=== PATIENT | male | born 1960 | race Two or more races ===

== ENCOUNTER 2021-08-08 09:00 | Inpatient (IN) | payer OTHER ==
[~2021-08-08] VITALS: Ht 182.9 cm; Wt 92.1 kg
[2021-08-08] VITALS (12 sets, daily range): BP systolic 102–158; BP diastolic 48–87
--- NOTE | 2021-08-08 09:03 | NUR ---
To ER bed 12, betty, from home, had seizure episode, witnessed by , versed 5mg, connected to monitor
--- NOTE | 2021-08-08 09:15 | NUR ---
SALINE LOCK ESTABLISHED, BLOOD DRAWN AND SENT TO LAB
--- NOTE | 2021-08-08 09:24 | NUR ---
URINE COLLECTED AND SENT TO LAB
[2021-08-08 09:28] LABS: BASOPHILS % (AUTO) 0.5 % (0.0-2.0); EOSINOPHILS % (AUTO) 2.1 % (0.0-6.0); HEMATOCRIT 30 % (39-51); HEMOGLOBIN 9.8 g/dL (13.5-17.5); LYMPHOCYTES # (AUTO) 0.8 K/uL (0.8-4.8); LYMPHOCYTES % (AUTO) 15.3 % (20.0-44.0); MEAN CORPUSCULAR HGB CONC 33 g/dl (31.0-36.0); MEAN CORPUSCULAR VOLUME 97 fL (80-96); MONOCYTES # (AUTO) 0.3 K/uL (0.1-1.30); NEUTROPHILS # (AUTO) 4.1 K/uL (1.8-8.9); NEUTROPHILS % (AUTO) 77.1 % (43.0-81.0); PLATELET COUNT (AUTO) 239 K/uL (150-450); RED BLOOD CELL COUNT(AUTO) 3.07 MIL/uL (4.5-6.0); WHITE BLOOD COUNT (AUTO) 5.4 K/uL (4.3-11.0)
[2021-08-08] MEDS ORDERED: IV NS 0.9% 1,000 ML BAG IV ONE (09:30)
[2021-08-08] MEDS ORDERED: LORAZEPAM INJ 2 MG/ML VIAL ONE (09:41)
--- NOTE | 2021-08-08 09:41 | NUR ---
TAKEN TO CT
[2021-08-08 09:46] LABS: BILIRUBIN,URINE NEGATIVE (NEGATIVE); COLOR,URINE YELLOW (YELLOW); LEUKOCYTE ESTERASE ,URINE NEGATIVE (NEGATIVE); NITRITE, URINE NEGATIVE (NEGATIVE); PROTEIN,URINE NEGATIVE (NEGATIVE); UGLUCOSE NEGATIVE (NEGATIVE); UROBILINOGEN,URINE 0.2 EU/dL (0.2)
[2021-08-08 09:49] LABS: CALCIUM, SERUM 9.1 mg/dL (8.5-10.1); CARBON DIOXIDE 23 mmol/L (21-32); CHLORIDE 101 mmol/L (98-107); CREATININE 1.5 mg/dL (0.6-1.3); GLUCOSE 114 mg/dL (74-106); POTASSIUM 4.6 mmol/L (3.5-5.1); SODIUM SERUM 137 mmol/L (136-145); UREA NITROGEN, BLOOD 24 mg/dL (7-18)
--- NOTE | 2021-08-08 09:55 | NUR ---
ATTEMPTED TO OBTAIN EKG ON PATIENT, PATIENT NOT STAYING STILL. KEEPS REMOVING CABLES.
[2021-08-08] MEDS ORDERED: LORAZEPAM INJ 2 MG/ML VIAL IVP ONE (10:00)
--- NOTE | 2021-08-08 13:31 | NUR ---
OBTAINED EKG AT 1119
--- NOTE | 2021-08-08 13:39 | NUR ---
BED 322-2. NURSE IS MARGARET
[2021-08-08] MEDS ORDERED: ONDANSETRON HCL/PF 4 MG/2 ML VIAL IVP PRN (14:00)
[2021-08-08] MEDS ORDERED: MAG HYDROX/AL HYDROX/SIMETH 30 ML UDC PO PRN (14:00)
[2021-08-08] MEDS ORDERED: MAGNESIUM HYDROXIDE 30 ML UDC PO PRN (14:00)
[2021-08-08] MEDS ORDERED: Z GUARD REMEDY 2 OZ OINT TP PRN (14:00)
[2021-08-08] MEDS ORDERED: ACETAMINOPHEN 325 MG TABLET PO PRN (14:00)
--- NOTE | 2021-08-08 14:01 | NUR ---
report given to Donna Andrew for bharath
--- NOTE | 2021-08-08 14:20 | NUR ---
[facility] ADMITTING NOTES RECEIVED PATIENT FORM E.R VIA [employer]. PATIENT IS A&O X 1, NOTED WITH CONFUSION. IV ACCESS ON RAC G#20 PATENT AND FLUSHES WELL. STARTED AN IV OF NS 1LX 75CC/HR, INFUSING WELL NO S/SX OF INFILTRATION NOTED. VITAL SIGNS TAKEN AND RECORDED. ON TELE MONITOR SHOWING NSR HR T 70'S. HISTORY TAKEN FROM PATIENT'S VIA PHONE CALL. SAFETY MEASURES IN PLACE: BED ON LOWEST LOCKED POSITION, SIDE RAILS UP X 2, PADDED SIDE RAILS WITH SIFT CLOTH FOR SAFETY, CALL LIGHT WITHIN EASY REACH. WILL CONTINUE TO MONITOR ACCORDINGLY.
[2021-08-08] MEDS: IV NS 0.9% 1,000 ML IV PRN (15:07)
[2021-08-08 15:27] LABS: ALANINE AMINOTRANSFERASE 22 U/L (12-78); ALBUMIN 3.7 g/dL (3.4-5.0); ALCOHOL, BLOOD < 3 mg/dL (0-0); ALKALINE PHOSPHATASE 69 U/L (46-116); ASPARTATE AMINOTRANSFERASE 27 U/L (15-37); BILIRUBIN,DIRECT 0.1 mg/dL (0.0-0.2); BILIRUBIN,TOTAL 0.4 mg/dL (0.2-1.0); TOTAL PROTEIN, SERUM 7.4 g/dL (6.4-8.2)
[2021-08-08 15:30] LABS: ACETAMINOPHEN < 10 ug/ml (10-30)
--- NOTE | 2021-08-08 15:30 | NUR ---
RN NOTES PATIENT WAS SEEN AND EXAMINED ON ROUNDS BY DR. MCKINLEY WITH ORDERS MADE AND CARRIED OUT. PATIENT TRANSFERRED TO ICU SAFELY. REPORT GIVEN TO JUDIE MURDOCK.
--- NOTE | 2021-08-08 16:55 | NUR ---
RN NOTES PATIENT NOTED TO HAVE CHANGE IN MENTATION AT 1645. NOT RESPONDING TO NAME COMPARED TO UPON ADMISSION. REACTS TO STERNAL RUB JUST BY INDEX FINGER TWITCHING. VITAL SIGNS TAKEN FOLLOWS: BP 156/94, IN 80, RR 12-14 O2 SAT 96%. NOTIFIED CHARGE NURSE. CHARGE NURSE REFERRED PATIENT AND SPOKE TO DR. PATEL. ABG STAT ORDERED AND DONE. PER DR. PATEL HE WILL SEE AND ASSESS PATIENT AND WILL BE HERE IN 10-15 MINS.
[2021-08-08 17:34] LABS: ABG BASE EXCESS 2.8 mmol/L; ABG OXYGEN SATURATION 94.7 % (92.0-98.5); ABG PCO2 65.7 mmHg (35.0-45.0); ABG PH 7.288 (7.350-7.450); ABG PO2 84.2 mmHg (75.0-100.0); AaDO2 37.9 mmHg; COHb 0.4 % (0.5-1.5); MetHb 0.2 % (0.0-1.5); O2Hb 94.1 % (94.0-97.0); SITE, ABG Left Radial
[2021-08-08] MEDS: LEVETIRACETAM (500MG) 1,000 MG in IV NS 0.9% 100 ML IV SCH (19:07)
[2021-08-08] MEDS: LORAZEPAM INJ 2 MG/ML VIAL IV PRN (23:40)
--- NOTE | 2021-08-08 23:45 | NUR ---
RN NOTE ATIVAN ADMIN FOR PT GETTING UP IN BED, ATTEMPTING TO PULL OFF EQUIPMENT, BIPAP MASK
[2021-08-09] VITALS (32 sets, daily range): BP systolic 107–190; BP diastolic 39–107
[2021-08-09] MEDS ORDERED: LORAZEPAM INJ 2 MG/ML VIAL IV ONE ×2 (03:00→20:00)
--- NOTE | 2021-08-09 03:36 | NUR ---
RN NOTE PT HAVING BIZARRE BEHAVIOR, YELLING IF HE WAS HAVING AN ARUGMENT, BUT BY HIMSELF. PT DOES NOT RESPOND TO VERBAL OR TACTILE STIMULATION. PT IS AGITATED. NOT DUE FOR ANOTHER ATIVAN AT THIS TIME. NOTIFIED DR CHRISTIANSON REGARDING PT SITUATION, ORDERS FOR ATIVAN 2MG/1ML X 1 IVP ONCE AND HALDOL 5MG IM TO CALM PT DOWN CARRIED OUT.
[2021-08-09] MEDS ORDERED: HALOPERIDOL LACTATE INJ 5 MG/ML VIAL IM ONE (04:00)
[2021-08-09] MEDS: IV NS 0.9% 1,000 ML IV PRN ×2 (04:08→22:22)
[2021-08-09 04:36] LABS: BASOPHILS % (AUTO) 0.1 % (0.0-2.0); HEMATOCRIT 29 % (39-51); HEMOGLOBIN 9.7 g/dL (13.5-17.5); LYMPHOCYTES # (AUTO) 0.9 K/uL (0.8-4.8); LYMPHOCYTES % (AUTO) 12.7 % (20.0-44.0); MEAN CORPUSCULAR HGB CONC 34 g/dl (31.0-36.0); MEAN CORPUSCULAR VOLUME 96 fL (80-96); MONOCYTES # (AUTO) 0.4 K/uL (0.1-1.30); MONOCYTES % (AUTO) 5.1 % (2.0-12.0); NEUTROPHILS # (AUTO) 5.7 K/uL (1.8-8.9); NEUTROPHILS % (AUTO) 82.1 % (43.0-81.0); PLATELET COUNT (AUTO) 236 K/uL (150-450); RED BLOOD CELL COUNT(AUTO) 3.02 MIL/uL (4.5-6.0); WHITE BLOOD COUNT (AUTO) 6.9 K/uL (4.3-11.0)
--- NOTE | 2021-08-09 04:45 | NUR ---
RN NOTE TEMP NOTED TO BE 100.9 AXILLARY, COOLING MEASURES APPLIED
[2021-08-09 04:52] LABS: ALBUMIN 3.5 g/dL (3.4-5.0); BILIRUBIN,TOTAL 0.6 mg/dL (0.2-1.0); CALCIUM, SERUM 9.1 mg/dL (8.5-10.1); CREATININE 1.4 mg/dL (0.6-1.3); MAGNESIUM 1.5 mg/dL (1.8-2.4); POTASSIUM 3.8 mmol/L (3.5-5.1); TOTAL PROTEIN, SERUM 7.1 g/dL (6.4-8.2)
[2021-08-09 05:03] LABS: THYROID STIMULATING HORMONE 0.448 uIU/mL (0.358-3.74)
[2021-08-09 05:11] LABS: PHOSPHORUS 0.9 mg/dL (2.5-4.9)
--- NOTE | 2021-08-09 05:40 | NUR ---
RN NOTE TEMP WENT DOWN TO 100.5 AXILLARY CRITICAL RESULT FOR PT PHOSPHORUS LEVEL OF 0.9 CALLED EPIC EX CHANGE FOR ORDERS FROM MD CHRISTIANSON Addendum: 08/09/21 at 0646 by YOANA CASTANON RN ORDERS FROM MD CHRISTIANSON TO CHANGE DIET TO NPO, TYLENOL RECTAL SUPPOSITORY 650 MG Q6H CARRIED OUT NO ORDERS AT THIS TIME FOR PHOS OF 0.9 WILL ENDORSE CARE TO DAY SHIFT RN FOR CONTINUATION OF CARE.
[2021-08-09] MEDS: LORAZEPAM INJ 2 MG/ML VIAL IV PRN ×3 (05:49→17:57)
[2021-08-09] MEDS ORDERED: ACETAMINOPHEN 650 MG/SUPP.RECT RC PRN (07:00)
[2021-08-09] MEDS ORDERED: Sodium Phosphate 40 MMOL in IV NS 0.9% 250 ML IV SCH (07:00)
[2021-08-09] MEDS ORDERED: MORPHINE SULFATE INJ 2 MG/ML DISP.SYRIN IV PRN (07:00)
--- NOTE | 2021-08-09 07:04 | NUR ---
RN CLOSING NOTE PT REMAINS ON IVF, GIVEN ATIVAN STILL AGITATED. PER MD CHRISTIANSON ORDERS CARRIED OUT FOR MORPHINE 2MG Q6H PRN. PT AT THIS TIME TEMP IS 99.8 AXILLARY. ON COOLING MEASURES. ORDERS FOR 0.9 PHOS RESULT, TO BE REPLACED WITH 40MMOL IV OF SODIUM PHOSPHATE. PT REMAINS ON BIPAP 18 AT 30%. ENDORSED TO DAY SHIFT RN FOR CONTINUATION OF CARE
--- NOTE | 2021-08-09 07:30 | NUR ---
RN NOTES PT FOUND CRAWLING ALL AROUND BED DISPLAYING NO S/S OF ACUTE DISTRESS, FLACC = 3 AND BILATERAL RISE AND FALL OF THE CHEST OBSERVED. PT IS SEVERLY CONFUSED, ATTEMPTING TO GET OUT OF BED. RESTRAINTS WERE RE APPLIED BILATERALLY AND TIGHTENED FOR PATIENT SAFETY. PULSES WERE PALPATED AND CAP REFILL CHECKED ( < 3 SECONDS) BILATERALLY. MCCOY CATH BELOW PATIENT AND DRAINING BY GRAVITY. R UA MID LINE PATIENT AND INTACT. VSS, RN WILL MONITOR AND TREAT THROUGHOUT SHIFT. SAFETY MEASURES IN PLACE, BED LOCKED AND IN LOWEST POSITION, SIDE RAILS UPX3, CALL LIGHT WITHIN REACH, BED ALARM ARMED.
[2021-08-09] MEDS ORDERED: Sodium Phosphate 30 MMOL in IV NS 0.9% 250 ML IV SCH (08:00)
--- NOTE | 2021-08-09 08:00 | NUR ---
MD VISIT DR. PATEL ASSESSED PATIENT. GAVE RN ORDERS: REMOVE MCCOY CATH, REMOVE R AC 20G, 50 MG DIPHENHYDRAMINE IV ONCE NOW. RN ACKNOWLEDGED ORDERS AND WILL EXECUTE DIRECTED.
[2021-08-09] MEDS ORDERED: diphenhydrAMINE HCL 50 MG/ML VIAL IV ONE (08:30)
[2021-08-09] MEDS ORDERED: METO50TA16 PO (08:44)
[2021-08-09] MEDS ORDERED: AMLO-212 PO (08:44)
[2021-08-09] MEDS ORDERED: TRIA1CAP20 PO (08:44)
[2021-08-09] MEDS ORDERED: BENA20TA9 PO (08:44)
[2021-08-09] MEDS ORDERED: DOXE25CA3 PO (08:57)
[2021-08-09] MEDS ORDERED: OMEP20CA15 PO (08:57)
[2021-08-09] MEDS ORDERED: GABA-532 PO (08:57)
[2021-08-09] MEDS ORDERED: BUPR1FIL19 SL (08:57)
[2021-08-09] MEDS ORDERED: FENO145T21 PO (08:57)
[2021-08-09] MEDS ORDERED: PARO40TA4 PO (08:57)
[2021-08-09] MEDS ORDERED: ALLO300T2 PO (08:57)
[2021-08-09 09:10] LABS: ABG BASE EXCESS 0.7 mmol/L; ABG PCO2 42.1 mmHg (35.0-45.0); ABG PH 7.401 (7.350-7.450); ABG PO2 65.2 mmHg (75.0-100.0); AaDO2 55.8 mmHg; COHb 0.3 % (0.5-1.5); MetHb 0.1 % (0.0-1.5); O2Hb 91.6 % (94.0-97.0); SITE, ABG Right Radial; VENT MODE, BG NC 24%
[2021-08-09] MEDS: Magnesium 1GM/D5W 100ML PREMIX 100 ML IV SCH ×2 (10:45→11:57)
[2021-08-09] MEDS: LEVETIRACETAM (500MG) 1,000 MG in IV NS 0.9% 100 ML IV SCH ×2 (11:09→21:56)
[2021-08-09] MEDS ORDERED: HALOPERIDOL LACTATE INJ 5 MG/ML VIAL IVP ONE (13:30)
--- NOTE | 2021-08-09 15:17 | NUR ---
SS Consult: Drug Abuse/Fentanyl SW attempted to meet with pt. SW spoke with pt.s nurse and he mentioned that pt. is severely confused and in his own world. SW will attempt to interview pt. once he is alert and in the appropriate state of mind.
--- NOTE | 2021-08-09 19:05 | NUR ---
RN NOTES PT FOUND SUPINE DISPLAYING NO S/S OF ACUTE DISTRESS, FLACC = 2 AND PT IS BREATHING EVEN AND UNLABORED ON 2L O2 NC. PT IS STILL SEVERLY CONFUSED, STILL ATTEMPTING TO GET OUT OF BED. RESTRAINTS WERE APPLIED BILATERALLY AND TIGHTENED FOR PATIENT SAFETY. PULSES WERE PALPATED AND CAP REFILL CHECKED ( < 3 SECONDS) BILATERALLY. R UA MID LINE PATIENT AND INTACT. SBAR AND REPORT GIVEN TO CAR PINCHER RN. ALL QUESTIONS ANSWERED. SAFETY MEASURES IN PLACE, BED LOCKED AND IN LOWEST POSITION, SIDE RAILS UPX3, CALL LIGHT WITHIN REACH, BED ALARM ARMED. PT ENDORSED IN STABLE CONDITION FOR JODI.
--- NOTE | 2021-08-09 19:30 | NUR ---
RN NOTE PT RECEIVED IN BED. PT IS ON 2L OF O2 VIA NC SHOWING NO S/S OF RESP DISTRESS. BREATHING EVEN AND UNLABORED. NO SIGNS OF DISTRESS. PT IS CONFUSED/RESTLESS. NSR ON MONITOR. RESTRAINTS NOTED. CURRENTLY NPO. IV ACCESS NOTED ON RIGHT UPPER ARM ML #18. LINE FLUSHED, PATENT, AND INTACT WITH NO SIGNS OF INFILTRATION. 0.9% NS RUNNING AT 75 ML/HR. ALL SAFETY MEASURES IMPLEMENTED. BED ALARM ON. BED LOCKED AND IN LOWEST POSITION. WILL CONTINUE TO MONITOR AND ASSESS FOR ANY CHANGES THROUGHOUT SHIFT.
--- NOTE | 2021-08-09 19:55 | NUR ---
RN NOTE DR. CARRASCO CAME TO ASSESS PATIENT AND ORDERED STAT CT SCAN. X-RAY CAME TO TAKE PATIENT FOR CT, BUT THEY SAID THE PATIENT IS MOVING AROUND TO MUCH AND THEY WOULD NOT BE ABLE TO DO THE CT DUE TO PATIENT BEING TOO AGITATED AND RESTLESS.
--- NOTE | 2021-08-09 20:15 | NUR ---
RN NOTE INFORMED DR. FINK ABOUT X-RAY SAYING THEY WOULD NOT BE ABLE TO DO CT DUE TO PT MOVING AROUND A LOT AND BEING RESTLESS. DR. FINK ORDERED ATIVAN 1MG IVP ONCE. ATIVAN ADMINISTERED ORDERED. PT TAKEN DOWN FOR CT, BUT PT WAS STILL RESTLESS AND MOVING AROUND. X-RAY WAS NOT ABLE TO DO CT. DR. CARRASCO NOTIFIED. NO NEW ORDERS AT THIS TIME.
[2021-08-10] VITALS (33 sets, daily range): BP systolic 141–214; BP diastolic 33–138
--- NOTE | 2021-08-10 01:00 | NUR ---
RN NOTE DR. CARRASCO CALLED AND ORDERED TO ADMINISTER ASPIRIN SUPPOSITORY 300MG. ORDER NOTED AND CARRIED OUT.
[2021-08-10] MEDS ORDERED: ASPIRIN 300 MG/SUPP.RECT RC ONE ×2 (01:30→01:52)
[2021-08-10] MEDS: LORAZEPAM INJ 2 MG/ML VIAL IV PRN ×2 (02:14→08:40)
--- NOTE | 2021-08-10 06:43 | NUR ---
RN NOTE NO CHANGES IN PT CONDITION DURING SHIFT. PT IS ON 2L OF O2 VIA NC SHOWING NO S/S OF RESP DISTRESS. BREATHING EVEN AND UNLABORED. NO SIGNS OF DISTRESS. PT IS STILL CONFUSED/RESTLESS. NSR ON MONITOR. IV ACCESS NOTED ON RIGHT UPPER ARM ML #18. LINE FLUSHED, PATENT, AND INTACT WITH NO SIGNS OF INFILTRATION. 0.9% NS RUNNING AT 75 ML/HR. ALL DUE MEDS GIVEN ORDERED. PT KEPT CLEAN AND COMFORTABLE. ALL SAFETY MEASURES IMPLEMENTED. BED ALARM ON. BED LOCKED AND IN LOWEST POSITION. WILL ENDORSE TO MORNING SHIFT RN FOR JODI.
--- NOTE | 2021-08-10 08:00 | NUR ---
RN NOTES PATIENT IN BED ANXIOUS, IRRITABLE, UNDRESS HIMSELF, CONFUSED, TRYING TO GET OUT OF BED BILATERAL RESTRAIN IS ON, CHECKED CIRCULATION Q2H, STARTED KEPPRA DRIP, NO SING OF AND SYMPTOMS OF SEIZURE, NO ACUTE RESPIRATORY DISTRESS. PT VERBALIZED INTERNAL STIMULI. SAFETY MEASURES IN PLACE SIDE RAILS PADDED FOR SAFETY, CALL LIGHT WITHIN REACH BED ALARM ON, WILL KEEP MONITORING CLOSELY
[2021-08-10 08:09] LABS: BASOPHILS % (AUTO) 0.3 % (0.0-2.0); HEMATOCRIT 28 % (39-51); HEMOGLOBIN 9.2 g/dL (13.5-17.5); LYMPHOCYTES # (AUTO) 0.8 K/uL (0.8-4.8); MEAN CORPUSCULAR HGB CONC 33 g/dl (31.0-36.0); MEAN CORPUSCULAR VOLUME 97 fL (80-96); MONOCYTES # (AUTO) 0.5 K/uL (0.1-1.30); MONOCYTES % (AUTO) 6.6 % (2.0-12.0); NEUTROPHILS # (AUTO) 6.3 K/uL (1.8-8.9); NEUTROPHILS % (AUTO) 83.1 % (43.0-81.0); PLATELET COUNT (AUTO) 191 K/uL (150-450); RED BLOOD CELL COUNT(AUTO) 2.89 MIL/uL (4.5-6.0); WHITE BLOOD COUNT (AUTO) 7.6 K/uL (4.3-11.0)
[2021-08-10 08:17] LABS: ALBUMIN 3.5 g/dL (3.4-5.0); BILIRUBIN,TOTAL 0.5 mg/dL (0.2-1.0); CALCIUM, SERUM 8.6 mg/dL (8.5-10.1); CREATININE 1.2 mg/dL (0.6-1.3); PHOSPHORUS 2.7 mg/dL (2.5-4.9); POTASSIUM 3.6 mmol/L (3.5-5.1); TOTAL PROTEIN, SERUM 6.8 g/dL (6.4-8.2)
[2021-08-10] MEDS: LEVETIRACETAM (500MG) 1,000 MG in IV NS 0.9% 100 ML IV SCH (08:40)
--- NOTE | 2021-08-10 08:40 | NUR ---
Rn Notes Pt yelling and creaming administering activan 2 ml iv push blood pressure 189/125 hr 93 will follow up
--- NOTE | 2021-08-10 11:08 | NUR ---
RN NOTES GOT CALLED FROM PT HER Name is MEGHANA , SHE WANTS TO SPEAK WITH THE HOSPITALIST ACCORDING PT WITHDRAWAL AND PAIN MANAGEMENT HOSPITALIST NOTIFIED
--- NOTE | 2021-08-10 11:10 | NUR ---
RN NOTES PT SEEN BY HOSPITALIST REGARDING WITHDRAWALS AND MOVING, CONFUSED AND PER HOSPITALIST UNABLE TO DO MRI BECAUSE PT MOVING, IRRITATING CONDITION. AM CARE DONE AND CHANGED COMFORT AND SAFETY MEASURES PROVIDED.
[2021-08-10] MEDS: IV NS 0.9% 1,000 ML IV PRN (12:22)
--- NOTE | 2021-08-10 12:26 | NUR ---
Rn notes Pt is yelling and screaming, called [facility] to get one time order Ativan 2mg/ml iv push order taken and carried out
[2021-08-10] MEDS ORDERED: LORAZEPAM INJ 2 MG/ML VIAL IV ONE (12:30)
[2021-08-10] MEDS: hydrALAZINE HCL IV 20 MG VIAL IV PRN ×2 (12:32→17:45)
--- NOTE | 2021-08-10 12:34 | NUR ---
RN NOTES ADMINISTERED APRESOLINE 10MG/ML IV PUSH FOR BP 176/91, P-100 .
--- NOTE | 2021-08-10 14:03 | NUR ---
RN NOTES ORDER RECEIVED FROM IN HOUSE CRA TO INSERT FOLLY CATH FOR ACCURATE OUTPUT
--- NOTE | 2021-08-10 14:23 | NUR ---
RN NOTES TEMPERATURE 101F ADMINISTERED TYLENOL SUPPOSITORY 650 MG PRN
[2021-08-10] MEDS ORDERED: MANNITOL 12.5 GM/50 ML VIAL IV ONE (17:00)
[2021-08-10] MEDS ORDERED: MANNITOL 20% IV ONE (17:00)
--- NOTE | 2021-08-10 17:25 | NUR ---
RN NOTES Pt condition changes suddenly, CT scan ordered and resulted, called [facility] , Pt orally intubated by Dr. Forrest with 7.5 ET tube secured at 23cm at the lip line with no complications. equal bilateral breath sounds and chest rise noted. Pt placed on mechanical ventilation with noted settings per MD order. No SOB or respiratory distress noted at this time. OGT inserted, x-ray done for placement. hob keep elevated for aspiration precaution. infusing Mannitol at this time.
--- NOTE | 2021-08-10 17:25 | NUR ---
RT Pt orally intubated by Dr. Forrest with 7.5 ET tube secured at 23cm at the lip line with no complications. Positive color changed on CO2 detector, equal bilateral breath sounds and chest rise noted. Pt placed on mechanical ventilation with noted settings per MD order. No SOB or respiratory distress noted at this time. Addendum: 08/10/21 at 1739 by JOE PFEIFFER RT Amended: Links added.
--- NOTE | 2021-08-10 17:45 | NUR ---
rn notes administered Apresoline 10mg/ml iv push for bp 185/105, p0-105.
[2021-08-10] MEDS ORDERED: PROPOFOL 100 ML IV PRN (18:00)
[2021-08-10 18:31] LABS: ABG BASE EXCESS -2.7 mmol/L; ABG OXYGEN SATURATION 97.9 % (92.0-98.5); ABG PCO2 30.1 mmHg (35.0-45.0); ABG PH 7.451 (7.350-7.450); ABG PO2 109.3 mmHg (75.0-100.0); AaDO2 141.3 mmHg; COHb 0.3 % (0.5-1.5); MetHb 0.1 % (0.0-1.5); O2Hb 97.5 % (94.0-97.0); PEEP,BG 5 cm H2O; SITE, ABG Right Radial; VT, ABG 500 mL
--- NOTE | 2021-08-10 18:48 | NUR ---
rn notes abg result notified dR sykes no change
--- NOTE | 2021-08-10 19:24 | NUR ---
RN NOTES PATIENT WILLING TO TRANSFER TO THE [facility] ICU ROOM 4529. PATIENT ETT-7.5/23, AC-20, PEEP-5, TV-500, FIO2-40. PATIENT TOLERATED SETTING WELL. OGT INTACT, CLAMPED. MCCOY INTACT OUTPUT WAS 300 ML. IV ACCESS ON RIGHT UA MIDLINE INTACT. BEDSIDE REPORT GIVEN AMBULANCE TRANSPORTATION, AND RN /RT AT THIS TIME. [facility] REPORT GIVEN MATHIEU PETERSEN. RN VERBALIZED UNDERSTANDING. IMAGING CD, AND PAPERWORK PACKAGE GIVEN AMBULANCE PERSONNEL. NEXT TO THE BED. PATIENT BELONGING TAKEN VIA NAME LAXMI. PATIENT SALES AND MANAGEMENT TRAINEE AT THIS TIME.
[2021-08-10] MEDS ORDERED: ETOMIDATE 2 MG/ML VIAL IV ONE (19:32)
[2021-08-10] MEDS ORDERED: ROCURONIUM BROMIDE 50 MG/5 ML IV ONE (19:32)
== END 2021-08-10 19:37 | disposition short-term general hospital (02) | DRG 812 ==
LOC: ER 09:11 → TELE 13:58 → ICU 17:44
PROVIDERS: ADMIT Internal Medicine; ATTEND Registered Nurse
PROC: 5A09357 Assistance with Respiratory Ventilation, Less than 24 Consecutive Hours, Continuous Positive Airway Pressure (ICD-10-PCS; principal; 2021-08-08)
PROC: 05H933Z Insertion of Infusion Device into Right Brachial Vein, Percutaneous Approach (ICD-10-PCS; 2021-08-08)
PROC: 0BH17EZ Insertion of Endotracheal Airway into Trachea, Via Natural or Artificial Opening (ICD-10-PCS; 2021-08-10)
DX: T42.8X1A Poisoning by antiparkinsonism drugs and other central muscle-tone depressants, accidental (unintentional), initial encounter (principal); I61.8 Other nontraumatic intracerebral hemorrhage; G93.6 Cerebral edema; F15.23 Other stimulant dependence with withdrawal; J96.02 Acute respiratory failure with hypercapnia; N17.0 Acute kidney failure with tubular necrosis; G92.8 Other toxic encephalopathy; I67.83 Posterior reversible encephalopathy syndrome; G40.509 Epileptic seizures related to external causes, not intractable, without status epilepticus; E83.39 Other disorders of phosphorus metabolism; I10 Essential (primary) hypertension; Z20.822 Contact with and (suspected) exposure to COVID-19; Y92.009 Unspecified place in unspecified non-institutional (private) residence as the place of occurrence of the external cause; D64.9 Anemia, unspecified; E83.42 Hypomagnesemia; I67.2 Cerebral atherosclerosis; W06.XXXA Fall from bed, initial encounter; Y92.003 Bedroom of unspecified non-institutional (private) residence as the place of occurrence of the external cause; T44.3X1A Poisoning by other parasympatholytics [anticholinergics and antimuscarinics] and spasmolytics, accidental (unintentional), initial encounter
CPT/HCPCS: 31720; 36415; 36600; 70450-TC; 71045-TC; 80048-TC; 80053-TC; 80076-TC; 82803-TC; 82962-TC; 83735-TC; 84100-TC; 84443-TC; 84484-TC; 85025-TC; 87040-TC; 87081-TC; 94002-TC; 94799-TC; 99082-TC; A9563; C9803; G0378; G0480; J0360; J1200; J1630; J1953; J2060; J2150; J3475; J3490; J7030; J7050